=== PATIENT | female | born 1990 | race Caucasian/White ===

== ENCOUNTER 2024-04-23 00:28 | Day surgery (SDC) | payer OTHER, SELFPAY ==
--- NOTE | 2024-04-22 09:04 | PC.NURSE ---
Report to the Outpatient Waiting Room, entrance under the green pavilion located off [facility], at time _0830_ on date _[id number]_. Planned Procedure Time: _1030_. Time changes happen often and if your time is changed the preop area will call you the afternoon before. - You and your visitor will be asked to self-screen and do not enter if you have any COVID symptoms. - A mask is optional within the hospital at this time. Patients may have clear liquids (water, carbonated beverages, clear teas, apple juice) until 3 hours prior to surgery with a maximum of 20 ounces. - No food from midnight until time of surgery Take the following medications with a SIP of water the morning of surgery: ___None DO NOT STOP ANY OF YOUR OTHER PRESCRIPTION MEDICATIONS PRIOR TO SURGERY ?EXCEPT THE FOLLOWING Medications to discontinue per physician None Date to take last dose Please no make-up, nail [place] citizen, hairspray, perfume, deodorant, or body powder the day of surgery. No jewelry (including any body piercings) or valuables the day of surgery, leave them at home. Please take a shower or bath the night before, or the morning of, surgery with an antibacterial soap. Wear comfortable, loose fitting clothing. - Jewelry must be removed prior to entering the operating room. Rings and piercings that are not removed may be cut off. - The hospital will not accept responsibility for valuables. - Please leave all valuables, including medications, at home the day of surgery. If you are going home after surgery, a licensed class a regional drivers must drive you home. - NO public transportation without another adult if you receive anesthesia. - We recommend that an adult stay with you for 24 hours following discharge. - We also recommend that you do not drive, make important decision, drink alcoholic beverages, or take any drugs that were not prescribed by your health care provider for at least 24 hours after your discharge time. Follow any additional instructions given to you from your surgeon. If you or anyone in your household have experienced Covid symptoms in the past week, please notify your surgeon or the nurse liaison at the phone number below for possible testing. Telephone instructions given to __Casey___and asked if any additional questions and then verbalized understanding. Patient advised to call surgeon office or pre surgery nurse liaison [phone] if any additional questions.
[2024-04-23] VITALS (7 sets, daily range): BP systolic 107–125; BP diastolic 69–89; PULSE 65–95; RESP 15–16; TEMP 36.1–36.8; O2SAT 99–100; BMI 19.1
--- NOTE | 2024-04-23 08:08 | WPDHPUPDATE1 ---
History and Physical Update Update Date/Time: 04/23/24 08:08 History and Physical has been reviewed, including an updated exam of the patient. There are NO changes in the patient's condition. Risks, benefits, and alternatives have been discussed and questions answered. Patient agrees to proceed with procedure.
[2024-04-23 09:51] LABS: BEDSIDEPREGUCG Negative
[2024-04-23] MEDS: KETOROLAC 15 MG/ML VIAL (*BKC) IV PUSH (09:59)
[2024-04-23] MEDS: LACTATED RINGERS 1,000 ML 30 ML IV CONT ×2 (09:59→11:36)
[2024-04-23] MEDS: ACETAMINOPHEN 500 MG TABLET 1000 MG PO (09:59)
--- NOTE | 2024-04-23 10:03 | P.PNAN_ITS ---
Anes - Initial Pre Proc Eval Procedure: Operation Date: 04/23/24 10:30 Proposed Procedures p Laparoscopic Bilateral Salpingectomy, Right Ovarian Cystectomy - Manuel Fabian MD Date/Time: 04/23/24 10:03 Surgeon: Manuel Fabian MD Pre Op Diagnosis: dermoid cyst Patient Data Age: 33 Gender: F Height: 1.6 m Weight: 49 kg Last Vital Signs Temp 98.3 F 04/23/24 08:57 Pulse 66 04/23/24 08:57 Resp 16 04/23/24 08:57 BP 107/69 04/23/24 08:57 Pulse Ox 100 04/23/24 08:57 O2 Del Method Room Air 04/23/24 08:57 Allergies Allergy/AdvReac Type Severity Reaction Status Date / Time No Known Allergies Allergy Mild Verified 04/23/24 08:55 Home Medications Medication Instructions Recorded Confirmed Type No Home Medications 04/22/24 04/23/24 History Laboratory Tests 04/23/24 09:48 POC Urine HCG, Qual Negative POC Ur Preg QC Yes Patient hx anesthesia problems: none Family hx anesthesia problems: none Results Review: All pre-operative results and documents have been reviewed as part of the pre- operative evaluation. PMFSH Social History Social History Smoking packs per day: 0.5 Smoking cigarettes per day: 10.0 Years smoked: 17 Smoking pack-years: 8.50 Smoking status: Current every day smoker Tobacco type: cigarettes Alcohol intake: former Substance use: former Substance use type: heroin and methamphetamine Living arrangements: with family Spiritual care concerns: No Anes - Eval Final PreProcedure Day of Procedure 04/23/24 10:03 Patient weight: normal Heart: regular rate and rhythm Lungs: clear to auscultation Airway: Mallampati scale class II Neurological: alert and oriented Last oral intake: >/= 8 hours ASA classification: II Emergent: no Anesthetic plan: proceed Anesthesia type and monitoring: general ETT and standard monitoring Results Review: All pre-operative results and documents have been reviewed as part of the pre- operative evaluation. Informed Consent: The patient's anesthetic plan and its attendant risks and benefits were discussed with the patient/family/POA. Questions were solicited and answers provided to the satisfaction of the patient/family/POA.
--- NOTE | 2024-04-23 11:25 | W.PM.PROC2 ---
Procedure Note - Detailed Date of Procedure 04/23/24 Pre-op Diagnosis dermoid cyst of right ovary, unwanted fertility Post-op Diagnosis Same Procedure Performed Laparoscopic bilateral salpingectomy, right oophorectomy Surgeon Manuel Fabian MD Anesthesia General Indications Unwanted fertility, teratoma the right over Findings 5 cm teratoma the right ovary, normal-appearing uterus fallopian tubes had a normal left ovary. Description of Procedure The patient was taken the operating room. She was prepped and draped in the dorsal lithotomy position after induction of general anesthesia. A 5 mm skin incision was made in the left upper quadrant of the abdominal skin. A 5 mm trocar was inserted the intra-abdominal cavity under direct visualization of the scope. Pneumoperitoneum was achieved. A 5 mm trocar was inserted in the left lower quadrant identical fashion. A 5 mm infraumbilical trocar was inserted in identical fashion as well. The bilateral fallopian tubes were removed. This was done by using a LigaSure cautery. The mesosalpinx adjacent to the tube was cauterized transected with LigaSure. This was initiated in the area the ovary and in a stepwise fashion moved medially to the area of the cornu of the uterus. Once there the fallopian tube was cauterized and transected. This was done in identical fashion on each side. The fallopian tubes were taken out through the left lower quadrant trocar site. Oophorectomy was performed. The infundibulopelvic ligament on the right was cauterized transected with LigaSure cautery. The paraovarian tissue was cauterized transected as well. The suspensory ligament the ovary in the ovarian artery were cauterized transected with LigaSure cautery. Ovary/ mass was placed in endobag and taken out the left lower quadrant trocar site. The pneumoperitoneum was reduced. The trocars removed. The skin was closed with subcuticular 4 Monocryl and covered with Dermabond. She was taken to cover stable condition. Sponge lap and needle counts were correct x2. Estimated Blood Loss 5 Drains No Packing No Pathology Yes Complications No immediate complications Condition Stable Disposition PACU
== END 2024-04-23 13:00 | disposition home or self-care (01) ==
PROVIDERS: Visit Provider Obstetrics & Gynecology
PROC: (CPT 49320; principal; 2024-04-23 10:30)
DX: D27.0 Benign neoplasm of right ovary (principal); N83.8 Other noninflammatory disorders of ovary, fallopian tube and broad ligament; Z30.2 Encounter for sterilization; F17.210 Nicotine dependence, cigarettes, uncomplicated
CPT/HCPCS: 58661; 88305; A9270; J1100; J1200; J1596; J1885; J2250; J2405; J2704; J3010; J7120; Q9968